=== PATIENT | female | born 1950 | race Caucasian/White ===

== ENCOUNTER → 2016-11-08 | Outpatient (CLI) | payer OTHER ==
[~2016-11-08] MED LIST: ASCA500 PO; ASPI325T39 PO; CALC500C3 PO; GARL1200 PO; MULT-506 PO; OMEG10007 PO; TYLUNK PO
--- NOTE | 2016-11-08 09:22 | DIAGNOSTIC IMAGING REPORT ---
LEFT PELVIS UNILATERAL HIP 1 VIEW CLINICAL HISTORY: 65 years-old Female presenting with LEFT HIP PAIN. TECHNIQUE: Single frontal view of the pelvis and frog-leg lateral view of the left hip were obtained. COMPARISON: None. FINDINGS: Extensive asymmetric degenerative change of the left hip. Complete joint space loss along the superior aspect is noted with extensive sclerosis and cystic change in both the acetabulum and humeral head. Slight deformity and irregularity of the cortex of the left femoral head. The hip joints remain congruent. No significant degenerative changes evident in the right hip. IMPRESSION: Severe degenerative change of the left hip as above. Electronically signed by: Petar Brooks M.D. 11/08/2016 9:20 AM Dictated Date/Time: 11/08/2016 9:19 AM
== END | disposition home or self-care (01) ==
LOC: C.RDSM 09:15
PROVIDERS: ATTEND Physician Assistant
DX: M25.552 Pain in left hip (principal); M16.12 Unilateral primary osteoarthritis, left hip

== ENCOUNTER 2016-12-15 08:14 | Inpatient (IN) | payer OTHER ==
[2016-11-22 10:28] VITALS: BMI 32.0
--- NOTE | 2016-11-22 11:08 | PAT Medication Instructions ---
Service Date Nov 22, 2016. Current Home Medication List Aspirin (Aspirin Ec), 4 TAB PO UD PRN for Pain Calcium Carbonate (Tums), 1 DOSE PO UD PRN for HEARTBURN Fish Oil (Wallis-3), 1 CAP PO HS Garlic (Garlic), Unknown Dose PO HS Multivitamin (Multivitamin), 1 TAB PO HS Medication Instructions For Your Scheduled Surgery - Hold for 5 days (per surgeon's instructions) Aspirin (Aspirin Ec), 4 TAB PO UD PRN for Pain - Hold the following medications 2 weeks prior to surgery: Garlic (Garlic), Unknown Dose PO HS Fish Oil (Wallis-3), 1 CAP PO HS -Hold the following the morning of the surgery: Calcium Carbonate (Tums), 1 DOSE PO UD PRN for HEARTBURN - Take the following medications as scheduled the night before surgery: Multivitamin (Multivitamin), 1 TAB PO HS Calcium Carbonate (Tums), 1 DOSE PO UD PRN for HEARTBURN (IF NEEDED) OTHERWISE NOTHING TO EAT OR DRINK AFTER MIDNIGHT If you have any questions please call us at [phone] or [phone] or [phone]
[2016-11-22 11:11] LABS: BASO % 0.4 %; BASO ABS # 0.02 K/uL (0-0.2); COMPLETE YES; EOS % 2.1 %; HEMATOCRIT 40.8 % (37-47); IG% 0.2 %; LYMPH % 33.4 %; LYMPH ABS # 1.56 K/uL (1.2-3.4); MEAN CELL VOLUME 84.5 fL (80-100); MEAN CORPUSCULAR HEMOGLOBIN 28.6 pg (25-34); MEAN CORPUSCULAR HGB CONC 33.8 g/dl (32-36); MEAN PLATELET VOLUME 9.6 fL (7.4-10.4); MONO % 7.1 %; NEUT % 56.8 %; PLATELET COUNT 234 K/uL (130-400); RED BLOOD COUNT 4.83 M/uL (4.2-5.4); WHITE BLOOD COUNT 4.67 K/uL (4.8-10.8)
[2016-11-22 11:15] LABS: URINE APPEARANCE CLEAR (CLEAR); URINE BILIRUBIN NEG (NEG); URINE COLOR YELLOW; URINE NITRITE NEG (NEG); URINE SPECIFIC GRAVITY 1.017 (1.000-1.030); UROBILINOGEN NEG (NEG); ZZUR CULT IF INDIC CLEAN CATCH NO
[2016-11-22 11:18] LABS: MANUAL MICROSCOPIC REQUIRED? NO; REVIEW REQ? NO
[2016-11-22 11:25] LABS: INR 0.9 (0.9-1.1); PROTHROMBIN TIME (PATIENT) 10.1 SECONDS (9.0-12.0)
[2016-11-22 11:50] LABS: BUN/CREATININE RATIO 33.1 (10-20); CALCIUM 9.2 mg/dl (8.5-10.1); CREATININE 0.71 mg/dl (0.60-1.20); POTASSIUM 4.2 mmol/L (3.5-5.1)
--- NOTE | 2016-11-22 12:04 | DIAGNOSTIC IMAGING REPORT ---
CHEST 2 VIEWS ROUTINE CLINICAL HISTORY: 65 years-old Female presenting with preoperative assessment. TECHNIQUE: PA and lateral views of the chest were obtained. COMPARISON: 05/06/2010. FINDINGS: Cardiomediastinal silhouette normal. Lungs and pleural spaces clear. Degenerative changes of the left glenohumeral joint. Upper abdomen normal. IMPRESSION: 1. No acute cardiopulmonary disease. Electronically signed by: Petar Brooks M.D. 11/22/2016 12:03 PM Dictated Date/Time: 11/22/2016 12:02 PM
--- NOTE | 2016-11-23 16:48 | HISTORY & PHYSICAL EXAMINATION ---
DATE OF ADMISSION: 12/15/2016 CHIEF COMPLAINT: Left hip pain. HISTORY OF PRESENT ILLNESS: This 65-year-old white female presents to the office with complaints of left hip pain that has been ongoing for over a year. No specific injury. Pain is over the lateral portion of her hip and extends to the groin. In the past, she did not have groin pain. She notes loss of motion secondary to pain. She has night pain. Worse with ambulation and weightbearing. Pain is affecting her ADLs. It is worse with standing in place. She has tried activity modification as well as oral anti-inflammatory use and use of a cane without lasting relief. Preoperative imaging has been obtained. She elects to proceed with left total hip arthroplasty in hopes of alleviating her discomfort. PAST MEDICAL HISTORY: Significant for numbness and tingling in her hands, right greater than left. History of kidney stones and obesity. PAST SURGICAL HISTORY: Right knee total knee arthroplasty and left ankle ORIF. ALLERGIES: NKDA. CURRENT MEDICATIONS: Multivitamin daily, garlic tablet daily, fish oil tablets daily, and aspirin 325 mg q. 6 hours. 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 No tobacco use. No ETOH use. Single. FAMILY HISTORY: Noncontributory. REVIEW OF SYSTEMS: Significant for above stated conditions, otherwise unremarkable. PHYSICAL EXAMINATION: GENERAL: Well-developed and well-nourished middle aged white female in no acute distress. Sitting on a bed. Alert and oriented. SKIN: Warm and dry with good turgor. No rashes or lesions. No ecchymosis or erythema. HEENT: Normocephalic and atraumatic. Eyes, PERRLA and EOMI. Nares patent bilaterally without turbinate enlargement. Oropharynx is without erythema or exudate. No lesions noted. Uvula midline. Oral mucosa moist. Good dentition. Fillings are noted. HEART: RRR. No MGR. LUNGS: Clear to auscultation bilaterally. No crackles, rhonchi or wheezing. Good air movement. ABDOMEN: Moderately obese. Bowel sounds present x4. Soft and nontender. No organomegaly. No masses. MUSCULOSKELETAL: Left hip reveals no obvious asymmetry or deformity. She has focal discomfort with palpation over the greater trochanter. No current pain with palpation over the anterior flexion crease. Hip flexion to around 100 degrees. Extremely limited internal and external rotation. She is essentially locked at midline. Significant pain with any attempted motion beyond neutral. Ambulatory with a significantly antalgic gait using her cane. NEUROLOGIC: Gross sensation is intact across the lower extremities by soft touch. Peripheral pulses are 2+. Cranial nerves II-XII are intact. DATA: Radiographic imaging previously obtained shows end-stage DJD of the left hip. She is bone on bone. She has large subchondral cysts. Large periarticular osteophytes are also present. IMPRESSION: Left hip severe end-stage degenerative joint disease. PLAN: Informed written consent will be obtained by Dr. Haynes. Operative procedure, postoperative recovery, physical therapy requirements, and medication use were all reviewed. Postoperative prescriptions for Percocet and Coumadin will be provided at discharge from the hospital. Anticipate discharge to home with home health services. She already has a walker and cane. Preoperative lab work, EKG, and chest x-ray have been ordered. Medical clearance has been requested from Dr. Casanova. 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
[2016-12-15] VITALS (7 sets, daily range): BP systolic 132–149; BP diastolic 73–83; PULSE 72–96; TEMP 36.5–36.9; O2SAT 94–97; Ht 165.1 cm; Wt 89.0 kg
[~2016-12-15] VITALS: Ht 165.1 cm; Wt 89.0 kg
[~2016-12-15 08:14] MED LIST changes: -ASCA500 PO; +CEFAZOLIN 2000 MG/60 ML D5W 60 ML IV SCH; +LACTATED RINGER'S 1000ML 1,000 ML IV SCH; +LACTATED RINGER'S 1000ML 500 ML IV ONE; +LACTATED RINGER'S 1000ML IV SCH; +ROPIVACAINE 5MG/ML 30 ML 150 MG, BUPIVACAINE/EPINEPHR 0.5% MPF 30 ML, KETOROLAC TROMETH... INFIL SCH; +TRANEXAMIC ACID INJ 1,000 MG in SODIUM CHLORIDE 0.9% 100ML 100 ML IV SCH; -TYLUNK PO
[2016-12-15] MEDS ORDERED: EpHEDrine SULFATE INJ 50 MG/ML AMP IV PRN (08:15)
[2016-12-15] MEDS ORDERED: FENTANYL CITRATE INJ 50 MCG/1 ML 2 ML VIAL IV PRN (08:15)
[2016-12-15] MEDS ORDERED: ATROPINE SULFATE 0.1 MG/ML 5ML SYR IV PRN (08:15)
[2016-12-15] MEDS ORDERED: ONDANSETRON INJ 2 MG/ML 2 ML VIAL IV PRN ×2 (08:15→12:45)
--- NOTE | 2016-12-15 08:26 | History & Physical Bridge Note ---
H&P Re-Evaluation Bridge Note: I have examined the patient, reviewed the History & Physical and in the interval since the performance of the History & Physical I have noted the following changes of clinical significance: consent verified.No changes noted
[2016-12-15] MEDS ORDERED: BUPIVACAINE 0.5 % 5 MG/1 ML PF 10ML VIAL ONE (08:33)
[2016-12-15] MEDS ORDERED: ACET-1256 PO (09:10)
[2016-12-15] MEDS ORDERED: MIDAZOLAM HCL 1 MG/ML 2ML VIAL ONE (10:02)
[2016-12-15] MEDS ORDERED: POVIDONE-IODINE OP SOLN 30 ML BTL ONE (10:37)
[2016-12-15] MEDS ORDERED: ORTHO JOINT ANESTHETIC ONE (10:37)
[2016-12-15] MEDS ORDERED: PROPOFOL IV EMULSION 10 MG/ML 20 ML VIAL IV ONE (11:21)
[2016-12-15] MEDS ORDERED: ONDANSETRON INJ 2 MG/ML 2 ML VIAL ONE (11:21)
[2016-12-15] MEDS ORDERED: LIDOCAINE HCL 2% 2 ML VIAL (20MG/ML) ONE (11:21)
[2016-12-15] MEDS ORDERED: METOCLOPRAMIDE HCL INJ 5 MG/ML 2 ML VIAL ONE (12:20)
--- NOTE | 2016-12-15 12:29 | [facility] Post Operative Brief Note ---
Immediate Operative Summary Operative Date Dec 15, 2016. Pre-Operative Diagnosis Left Hip End-Stage Degenerative Joint Disease Post-Operative Diagnosis Left Hip End-Stage Degenerative Joint Disease Procedure(s) Performed Left Total Hip Arthroplasty--Uncemented Surgeon Dr. Haynes Jira Administrator Surgeon(s) Dr. Brownlee (Fellow)/FIDELIA Peres Estimated Blood Loss 100 ml Findings severe djd Fluids (cc crystalloids) 1300cc Specimens A. Left Femoral Head Drains none Anesthesia spinal Complication(s) None Disposition Recovery Room / PACU
[2016-12-15] MEDS ORDERED: WARF2TAB PO (12:41)
[2016-12-15] MEDS ORDERED: OXYC-57 PO (12:41)
[2016-12-15] MEDS ORDERED: ACETAMINOPHEN 325 MG TAB PO PRN (12:45)
[2016-12-15] MEDS ORDERED: MAGNESIUM HYDROXIDE SUSP 30 ML UDC PO PRN (12:45)
[2016-12-15] MEDS ORDERED: ALUMINUM/MAGNESIUM/SIMETH (MAALOX MAX) 30 ML UDC PO PRN (12:45)
[2016-12-15] MEDS ORDERED: OXYCODONE HCL IR 5 MG TAB (IMMEDIATE RELEASE) PO PRN (12:45)
[2016-12-15] MEDS ORDERED: DiphenhydrAMINE HCL 50 MG/ML VIAL IV PRN (12:45)
[2016-12-15] MEDS ORDERED: METOCLOPRAMIDE HCL INJ 5 MG/ML 2 ML VIAL IV PRN (12:45)
[2016-12-15] MEDS ORDERED: MoRPHine SULFATE 2 MG/ML CARP IV PRN (12:45)
--- NOTE | 2016-12-15 12:47 | Discharge Instructions ---
Discharge Instructions Date of Service Dec 15, 2016. Admission Reason for Admission: Left Hip Degenerative Joint Disease Discharge Discharge Diagnosis / Problem: left hip s/p total hip replacement Discharge Goals Goal(s): Decrease discomfort, Improve function, Increase independence Activity Recommendations Activity Limitations: as noted below Lifting Limitations: gradually increase as tolerated Exercise/Sports Limitations: until after follow-up appointment Shower/Bathe: keep incision dry Driving or Machine Use: No driving until cleared by Dr. Haynes Weightbearing Status: Left weightbearing (as tolerated) . Instructions / Follow-Up Instructions / Follow-Up New Medicine: * You will likely be taking one or more of these medicines: 1. Percocet - Take, as directed, when you need it, every four to six hours to control your pain. 2. Coumadin - Thins your blood to lessen the chance of forming a blood clot. The dose of this is different for each person and is based on your blood tests that are done twice a week. * The most common side effects of pain medicine and iron are nausea and constipation. If nausea or constipation is too much of a problem or if you have any questions about your new medicines or doses, call [facility] at . We will try to help you manage these issues. VERY IMPORTANT TO READ AND REVIEW" Blood Clots and Blood Thinning Medicine: * You are given Coumadin during the immediate post-operative period to lessen the risk of blood clots forming in your legs and/or lungs. Coumadin is usually given for six weeks after surgery. * The prescription is for 2 mg tablets. At discharge, you should understand your dose and take it all at the same time every day, preferably after dinner. * You need to get your blood checked 1 - 2 times per week for six weeks, or as directed. * If your dose needs to change, we will call you. Do not take your medication on the day of the blood test until we call you. * If you don't hear from us after your blood draws, keep taking the same dose. Pain: * The immediate post-operative period after hip replacement surgery is often quite painful. * You are given a prescription for pain medicine. You should take it, as directed, when you need it, especially before physical therapy and before going to bed. Pain that interferes with sleep is very common and can last several months. * You will likely need pain medicine for the first two to four weeks. It will not stop all of the pain. The pain will lessen and as you feel better, you may change to milder pain medicine such as Tylenol. * The most common side effects of pain medicine are nausea and constipation, so don't take more than you need. Physical Therapy: * Follow the "Hip Precautions Instructions." * In some cases, the professor of social work at the hospital will arrange to have a therapist come to your house for the first couple of weeks to help you learn these skills. * You need to practice on your own or with the help of a family member as needed. * When you learn these skills, most of the therapy can be done on your own. Home Exercise: * You were shown a series of exercises in the hospital. Do these exercises three to four times each day including the exercises you were shown in physical therapy. Walking: * Get up and walk several times each day. For the first four weeks, try not to stand or walk for more than one hour at a time. If you do stand or walk for more than one hour, you will not hurt anything, but your leg will likely swell. * As you feel comfortable, you may change from the walker or crutches to a cane and then to independent walking. SELF CARE INSTRUCTIONS AFTER TOTAL HIP REPLACEMENT Until the incision and soft tissues around your hip have healed, there is a possibility that the hip prosthesis could dislocate. A. Observe the following precautions to prevent dislocation: 1. Don't bend your hip greater than 90 degrees. 2. Avoid crossing your legs or ankles while standing or lying. 3. Sit with your feet placed 6 inches apart. 4. When sitting, keep your knees below your hips. Sit on a firm surface, avoid deep, soft chairs and couches. Use an elevated toilet seat in the bathroom. 5. Don't bend over at the waist. Use a long handled shoehorn and a sock aid to help you put on your shoes and socks. A cord tire builder can help you mushroom picker objects that are too high or too low to reach. 6. Keep car riding to a minimum for at least one month after surgery. B. Your balance may be shaky for a while. Use crutches or a walker until directed by your doctor. C. Use hand rails when walking on stairs. D. Wear low heeled shoes with non-slip soles. E. Be sure that your floors are free of things that could trip you - throw rugs , electrical cords, small objects. Avoid wet and waxed floors, especially with crutches and canes. F. Try to walk several times a day with rest periods between. G. Continue with all the exercises taught to you in the hospital. Again, make walking a part of your daily routine. VERY IMPORTANT TO READ AND REVIEW A. Take Coumadin, or Lovenox (blood thinning medications) as directed by your doctor. If you are on Coumadin, have a pro-time (blood test) drawn according to your doctor's instructions. This will tell the doctor how well the Coumadin is thinning your blood. B. There are a few signs you need to watch for after you are home. If you notice any of the followin. Increased severe hip pain. Some pain is expected especially when you exercise. 2. Increased swelling in your leg or knee; pain or swelling of the calf muscle in either lower leg. 3. Any fluid drainage from the incision. 4. Shortness of breath or chest pain. TEDs/Elastic Stockings: * The white elastic stockings help limit swelling and prevent blood clots from forming in your legs. The more you wear them, the more they work. * Wear them for six weeks. Prevention of Infection: * Take antibiotics one hour before any dental cleaning, dental work, urological procedure, gastrointestinal procedure or any invasive surgery in order to prevent your new joint from getting infected. * You may get the antibiotics from the doctor performing the procedure or we will call in a prescription to the pharmacy of your choice. Call the office for a prescription at least 2 days prior to your appointment. Things to Watch For: * Drainage from the incision site that occurs more than one week after your surgery. * Severely increased leg pain or swelling. * Increased redness at the incision site. * Fever above 101 degrees Fahrenheit. * Unusual chest pain or shortness of breath. * Unusual pain or burning with urination. Current Hospital Diet Patient's current hospital diet: Discharge Diet Recommended Diet: Regular Diet Procedures Procedures Performed: Left Total Hip Arthroplasty--Uncemented Pending Studies Studies pending at discharge: no Medical Emergencies . Who to Call and When: Medical Emergencies: If at any time you feel your situation is an emergency, please call 911 immediately. . Non-Emergent Contact Non-Emergency issues call your: Primary Care Provider, Surgeon Call Non-Emergent contact if: temperature is above 101, wound has increased drainage, wound has increased redness, wound has increased pain, you have any medication questions . "Provider Documentation" section prepared by Humberto Roque PA-C. . VTE Core Measure Inpt VTE Proph given/why not?: Warfarin (Coumadin), T.EKrysten Stockings, SCD's [place] Drug Monitoring Program Search Results: no issues identified
--- NOTE | 2016-12-15 13:08 | Progress Note ---
Progress Note Date of Service Dec 15, 2016. Progress Note Postop check status post left total replacement. Patient seen in recovery room. She is resting, comfortably. She denies chest pain shortness breath fever chills nausea vomiting or headache. Vital signs are stable afebrile. Spinal block starting to wear off trace function. X-rays pending. Assessment doing well continue care pathway. Dictated not read.
--- NOTE | 2016-12-15 13:11 | OPERATIVE REPORT ---
DATE OF OPERATION: 12/15/2016 SURGEON: Jim Haynes MD SHERIFF OFFICER: Torrie. SECOND SHERIFF OFFICER: Humberto Roque PA-C PREOPERATIVE DIAGNOSIS: Severe osteoarthritis with deformity, left hip. POSTOPERATIVE DIAGNOSIS: Same. OPERATION PERFORMED: Noncemented left total hip replacement. PERIOPERATIVE SITUATION: Medically cleared female with intractable hip pain with x-rays revealing end-stage disease with significant superior migration, subchondral cystic formation, significant thickening and periarticular osteophytes of the joint. At this point in time, she has failed conservative management and is requesting total joint replacement. SUMMARY OF IMPLANTS: Size 50 acetabular shell sector cup, cancellous bone screw 6.5 x 25, acetabular liner 32 x 50 neutral 1 high Tri-Lock femoral stem, Articul/Lopez femoral head size 32+9. ESTIMATED BLOOD LOSS: 100 mL CRYSTALLOID: 1300 mL PROCEDURE: The patient appropriately identified, site verified, consent verified, 2 grams of Ancef confirmed as being given and a gram of TXA confirmed as being given. The left lower extremity was prepped and draped in usual routine fashion with the patient in the right lateral decubitus position. A posterior approach to the hip was made. Sharp dissection carried down to the fascia. This was then opened with the thermal device retractor placed with care protecting the sciatic nerve. The short external rotators were then identified and then they were released and the capsule was then opened and teed, the hip dislocated, the femoral neck resected. There was marked deformity. Acetabular exposure was then obtained with an anterior, inferior and superior lateral retractor. The labrum remnants were removed, the osteophytes removed, multiple loose bodies removed. Serial reaming carried up to a 50 and a 50 cup impacted into appropriate anteversion and inclination. A 6.5 x 25 screw was then placed with excellent purchase. The wound was then irrigated with Betadine Pulsavac and then the trial liner seated. The femur was then flexed and internally rotated. The proximal femur prepared with the padded box sewer, canal finder, lateralizing rasp, and serial broaching up to a size 1. Trials with a +5 and a +9, produced excellent stability, but leg lengths were better with the +9. The hip was then dislocated. All remaining trial elements were removed. The wound irrigated with Betadine Pulsavac and then permanent liner seated, permanent head and neck seated. Wound irrigated with Betadine Pulsavac and then closed with #2 Vicryl for the fascial layer. Orthomix injected into the subcutaneous layers and then this layer closed with #2 Vicryl for the deep fat, 2-0 Vicryl for the superficial fat and stainless steel clips for skin. The patient was then transferred to recovery room in satisfactory condition having tolerated the procedure well. I attest to the content of the Intraoperative Record and any orders documented therein. Any exception s are noted below.
[2016-12-15] MEDS ORDERED: MoRPHine SULFATE 4 MG/ML 1 ML CARP\\VIAL IV PRN (13:15)
--- NOTE | 2016-12-15 13:24 | DIAGNOSTIC IMAGING REPORT ---
PELVIS 1 OR 2 VIEW ROUTINE CLINICAL HISTORY: Postop hip arthroplasty COMPARISON STUDY: No previous studies for comparison. FINDINGS: There are postsurgical changes of a total left hip arthroplasty. The acetabular and femoral components appear well seated. Overlying skin yudith are evident. There is no dislocation. There is air in soft tissues consistent with recent surgery. IMPRESSION: Postsurgical changes of a total left hip arthroplasty. Electronically signed by: Ronal Singh M.D. 12/15/2016 1:23 PM Dictated Date/Time: 12/15/2016 1:22 PM
--- NOTE | 2016-12-15 13:58 | Anesthesiology Progress Note ---
Anesthesia Post Op Note Date & Time Dec 15, 2016 at 13:58 Vital Signs Pain Intensity: 0 Vital Signs Past 12 Hours Date Time Temp Pulse Resp B/P (MAP) Pulse Ox O2 Delivery O2 Flow Rate FiO2 12/15/16 13:54 36.5 72 18 12/15/16 13:54 71 18 95 12/15/16 13:51 129/78 12/15/16 13:49 73 18 12/15/16 13:49 72 18 95 12/15/16 13:46 131/73 12/15/16 13:44 70 18 96 12/15/16 13:44 71 18 12/15/16 13:41 131/72 12/15/16 13:39 72 15 96 12/15/16 13:39 70 15 12/15/16 13:36 132/74 12/15/16 13:34 73 15 96 12/15/16 13:34 74 15 12/15/16 13:31 125/73 12/15/16 13:29 66 14 96 12/15/16 13:29 66 14 12/15/16 13:28 36.4 12/15/16 13:27 68 16 12/15/16 13:27 67 16 96 12/15/16 13:26 120/75 12/15/16 13:22 66 15 12/15/16 13:22 67 15 96 12/15/16 13:21 124/80 12/15/16 13:17 67 16 97 12/15/16 13:17 67 16 12/15/16 13:16 122/77 12/15/16 13:12 67 17 96 12/15/16 13:12 68 17 12/15/16 13:10 131/75 12/15/16 13:07 67 12 12/15/16 13:07 71 12 96 12/15/16 13:06 104/53 12/15/16 13:02 68 16 95 12/15/16 13:02 69 16 12/15/16 13:01 123/77 12/15/16 12:57 68 14 12/15/16 12:57 68 14 96 12/15/16 12:56 131/75 12/15/16 12:52 69 13 12/15/16 12:52 70 13 95 12/15/16 12:51 128/73 12/15/16 12:47 75 13 12/15/16 12:47 79 13 95 12/15/16 12:46 122/73 12/15/16 12:42 73 16 96 12/15/16 12:42 75 16 12/15/16 12:41 135/80 12/15/16 12:37 36.2 77 16 125/74 96 Nasal Cannula 4 12/15/16 12:37 15 12/15/16 12:37 15 125/74 12/15/16 08:34 36.6 86 20 143/81 94 Room Air Notes Mental Status: alert / awake / arousable, participated in evaluation Pt Amnestic to Procedure: Yes Nausea / Vomiting: adequately controlled Pain: adequately controlled Airway Patency, RR, SpO2: stable & adequate BP & HR: stable & adequate Hydration State: stable & adequate Neuraxial Anesthesia: was administered, sensory block is resolving Anesthetic Complications: no major complications apparent
[2016-12-15] MEDS: D5W AND 1/2NSS + 20MEQ KCL 1,000 ML IV SCH (14:30)
[2016-12-15] MEDS: ACETAMINOPHEN IV 1,000 MG in EMPTY BAG 0 ML IV SCH ×2 (15:00→22:41)
[2016-12-15] MEDS ORDERED: WARFARIN SOD 5 MG TAB PO ONE (16:00)
[2016-12-15] MEDS: KETOROLAC TROMETHAMINE 15 MG/ML VIAL IV. SCH ×2 (16:38→21:55)
[2016-12-15] MEDS: CEFAZOLIN IV 2,000 MG in SYRINGE 0 ML IV SCH ×2 (16:43→23:48)
--- NOTE | 2016-12-15 17:42 | Progress Note ---
Progress Note Date of Service Dec 15, 2016. Progress Note She is sitting up in bed doing well denies any condyle complaints. She notes that she can move her legs. Femoral and sciatic nerve function is completely normal. Eating well. We'll Hep-Lock IV. Mobilize.
[2016-12-15] MEDS: FERROUS GLUCONATE 324 MG TAB PO SCH (18:28)
[2016-12-15] MEDS ORDERED: TRANEXAMIC ACID INJ 1,000 MG in SODIUM CHLORIDE 0.9% 100ML 100 ML IV SCH (18:30)
[2016-12-15] MEDS: DOCUSATE SODIUM 100 MG CAP PO SCH (21:11)
[2016-12-16 00:01] VITALS: BP 131/76; PULSE 76; TEMP 36.7; O2SAT 96
[2016-12-16] MEDS: D5W AND 1/2NSS + 20MEQ KCL 1,000 ML IV SCH (00:30)
[2016-12-16] MEDS ORDERED: NURSING VERBAL MED ORDER ONE (02:15)
[2016-12-16 03:27] VITALS: BP 139/76; PULSE 84; TEMP 36.7; O2SAT 96
[2016-12-16] MEDS: KETOROLAC TROMETHAMINE 15 MG/ML VIAL IV. SCH ×2 (04:32→10:15)
[2016-12-16 05:43] LABS: BASO % 0.3 %; BASO ABS # 0.02 K/uL (0-0.2); COMPLETE YES; EOS % 0.3 %; HEMATOCRIT 36.8 % (37-47); IG% 0.1 %; LYMPH ABS # 1.29 K/uL (1.2-3.4); MEAN CELL VOLUME 84.6 fL (80-100); MEAN CORPUSCULAR HEMOGLOBIN 29.2 pg (25-34); MEAN CORPUSCULAR HGB CONC 34.5 g/dl (32-36); MEAN PLATELET VOLUME 9.3 fL (7.4-10.4); MONO % 5.8 %; NEUT % 76.5 %; PLATELET COUNT 196 K/uL (130-400); RED BLOOD COUNT 4.35 M/uL (4.2-5.4); WHITE BLOOD COUNT 7.57 K/uL (4.8-10.8)
[2016-12-16 05:51] LABS: PROTHROMBIN TIME (PATIENT) 10.7 SECONDS (9.0-12.0)
[2016-12-16] MEDS: ACETAMINOPHEN IV 1,000 MG in EMPTY BAG 0 ML IV SCH (06:03)
[2016-12-16 06:14] LABS: BUN/CREATININE RATIO 19.1 (10-20); CALCIUM 8.2 mg/dl (8.5-10.1); CREATININE 0.67 mg/dl (0.60-1.20); POTASSIUM 3.8 mmol/L (3.5-5.1)
[2016-12-16] MEDS ORDERED: DEXAMETHASONE INJ 10 MG in SYRINGE 0 ML IV SCH (07:30)
[2016-12-16 07:41] VITALS: BP 125/67; PULSE 80; TEMP 36.3; O2SAT 96
--- NOTE | 2016-12-16 07:53 | Orthopedic Progress Note ---
Orthopedic Progress Note Date of Service Dec 16, 2016. Subjective Post OP Day: 1 Reports: feeling well, Denies: complaints, chest pain, SOB, nausea / vomiting, light headedness, calf pain Objective calves soft nontender, N/V intact, hip located, dressing C/D/I, A&O x3, toes mobile Date Time Temp Pulse Resp B/P (MAP) Pulse Ox O2 Delivery O2 Flow Rate FiO2 12/16/16 07:41 36.3 80 16 125/67 (86) 96 Room Air 12/16/16 03:27 36.7 84 16 139/76 (97) 96 Room Air 12/16/16 00:01 36.7 76 16 131/76 (94) 96 Room Air 12/15/16 23:15 Room Air 12/15/16 19:33 36.9 96 20 138/73 (94) 97 Room Air 12/15/16 16:30 36.5 84 18 132/75 (94) 97 Nasal Cannula 2.0 12/15/16 16:00 97 Nasal Cannula 2.0 12/15/16 15:30 36.5 79 18 147/80 (102) 97 Nasal Cannula 2.0 12/15/16 14:30 36.6 72 18 149/81 (103) 96 Nasal Cannula 2.0 12/15/16 14:00 36.6 76 16 144/83 (103) 97 Nasal Cannula 2.0 12/15/16 14:00 97 Nasal Cannula 2.0 12/15/16 14:00 Nasal Cannula 2.0 12/15/16 13:54 36.5 72 18 12/15/16 13:54 71 18 95 12/15/16 13:51 129/78 12/15/16 13:49 73 18 12/15/16 13:49 72 18 95 12/15/16 13:46 131/73 12/15/16 13:44 70 18 96 12/15/16 13:44 71 18 12/15/16 13:41 131/72 12/15/16 13:39 72 15 96 12/15/16 13:39 70 15 12/15/16 13:36 132/74 12/15/16 13:34 73 15 96 12/15/16 13:34 74 15 12/15/16 13:31 125/73 12/15/16 13:29 66 14 96 12/15/16 13:29 66 14 12/15/16 13:28 36.4 12/15/16 13:27 68 16 12/15/16 13:27 67 16 96 12/15/16 13:26 120/75 12/15/16 13:22 66 15 12/15/16 13:22 67 15 96 12/15/16 13:21 124/80 12/15/16 13:17 67 16 97 12/15/16 13:17 67 16 12/15/16 13:16 122/77 12/15/16 13:12 67 17 96 12/15/16 13:12 68 17 12/15/16 13:10 131/75 12/15/16 13:07 67 12 12/15/16 13:07 71 12 96 12/15/16 13:06 104/53 12/15/16 13:02 68 16 95 12/15/16 13:02 69 16 12/15/16 13:01 123/77 12/15/16 12:57 68 14 12/15/16 12:57 68 14 96 12/15/16 12:56 131/75 12/15/16 12:52 69 13 12/15/16 12:52 70 13 95 12/15/16 12:51 128/73 12/15/16 12:47 75 13 12/15/16 12:47 79 13 95 12/15/16 12:46 122/73 12/15/16 12:42 73 16 96 12/15/16 12:42 75 16 12/15/16 12:41 135/80 12/15/16 12:37 36.2 77 16 125/74 96 Nasal Cannula 4 12/15/16 12:37 15 12/15/16 12:37 15 125/74 12/15/16 08:34 36.6 86 20 143/81 94 Room Air Laboratory Results 24 Hours: Test 12/16/16 05:16 White Blood Count 7.57 K/uL Red Blood Count 4.35 M/uL Hemoglobin 12.7 g/dL Hematocrit 36.8 % Mean Corpuscular Volume 84.6 fL Mean Corpuscular Hemoglobin 29.2 pg Mean Corpuscular Hemoglobin Concent 34.5 g/dl Platelet Count 196 K/uL Mean Platelet Volume 9.3 fL Neutrophils (%) (Auto) 76.5 % Lymphocytes (%) (Auto) 17.0 % Monocytes (%) (Auto) 5.8 % Eosinophils (%) (Auto) 0.3 % Basophils (%) (Auto) 0.3 % Neutrophils # (Auto) 5.79 K/uL Lymphocytes # (Auto) 1.29 K/uL Monocytes # (Auto) 0.44 K/uL Eosinophils # (Auto) 0.02 K/uL Basophils # (Auto) 0.02 K/uL Prothromb Time International Ratio 1.0 Prothrombin Time 10.7 SECONDS Assessment & Plan Assessment: s/p left MELVIN post-op day # 1 doing well Plan: - WBAT/LLE - PT/OT - abx completed - DVT prophylaxis: coumadin, TEDS, SCDs - INR: 1.0, home on 5 mg coumadin, recheck INR Tuesday - Diet: regular - Dressing change this AM - Home likely later today Inhouse Planning DVT Prophylaxis: TEDs, SCDs, Coumadin Discharge Planning Discharge Planning: home with home health DVT Prophylaxis: TEDs, SCDs, Coumadin
[2016-12-16] MEDS: DOCUSATE SODIUM 100 MG CAP PO SCH (08:40)
[2016-12-16] MEDS: FERROUS GLUCONATE 324 MG TAB PO SCH ×2 (08:41→12:22)
[2016-12-16] MEDS ORDERED: PANTOprazole SOD 40 MG TAB PO SCH (09:00)
[2016-12-16] MEDS ORDERED: MULTIVITAMIN TAB PO SCH (09:00)
--- NOTE | 2016-12-16 09:01 | Discharge Summary ---
Orthopedic Discharge Summary Admission Date/Reason Dec 15, 2016 at 08:40 Left Hip Degenerative Joint Disease. Discharge Date/Disposition Dec 16, 2016 Home with services Diagnosis Principal Diagnosis: Left hip DJD Secondary Diagnoses/Problems: s/pl Left MELVIN Procedure(s) Performed Left total hip arthroplasty by Dr. Currie 12/15/16 Medication Reconciliation New Medications: Oxycodone/Acetaminophen 5MG/325MG (Percocet 5MG/325MG) Tab 1-2 TABLETS PO Q4H PRN for Pain, #30 TAB Warfarin Sodium (Coumadin) 2 Mg Tab 4 MG PO DAILY, #60 TAB Continued Medications: Acetaminophen (Tylenol) 500 Mg Tab 2 TAB PO Q6 for 2 Days, #20 TAB 3 Refills Calcium Carbonate (Tums) 500 Mg Chew 1 DOSE PO UD PRN for HEARTBURN Garlic (Garlic) Unknown Strength Cap Unknown Dose PO HS Multivitamin (Multivitamin) Tab 1 TAB PO HS, TAB Discontinued Medications: Aspirin (Aspirin Ec) 325 Mg Tab 4 TAB PO UD PRN for Pain PT INSTRUCTED TO STOP 5 DAYS PRIOR TO SURGERY BY DR CURRIE'S PA Fish Oil (Dalton-3) 1 Ea Cap 1 CAP PO HS, CAP Admission Physical Exam As per Admitting History & Physical. Hospital Course 66 y/o female with long standing left hip pain secondary to DJD, surgery recommended, consents obtained. The patient tolerated the procedure well and was able to be discharged home with home health on 12/16/16. Discharge Instructions Please refer to the electronic Patient Visit Report (Discharge Instructions) for additional information.
[2016-12-16 11:47] VITALS: BP 145/73; PULSE 90; TEMP 36.8; O2SAT 96
--- NOTE | 2016-12-16 12:41 | Anesthesiology Progress Note ---
Anesthesia Post Op Note Date & Time Dec 16, 2016 at 12:41 Vital Signs Pain Intensity: 2.0 Vital Signs Past 12 Hours Date Time Temp Pulse Resp B/P (MAP) Pulse Ox O2 Delivery O2 Flow Rate FiO2 12/16/16 11:47 36.8 90 16 145/73 (97) 96 Room Air 12/16/16 09:29 Room Air 12/16/16 09:12 36.3 80 16 96 Room Air 12/16/16 07:41 36.3 80 16 125/67 (86) 96 Room Air 12/16/16 07:40 Room Air 12/16/16 03:27 36.7 84 16 139/76 (97) 96 Room Air Notes Mental Status: alert / awake / arousable, participated in evaluation Pt Amnestic to Procedure: Yes Nausea / Vomiting: adequately controlled Pain: adequately controlled Airway Patency, RR, SpO2: stable & adequate BP & HR: stable & adequate Hydration State: stable & adequate Anesthetic Complications: no major complications apparent
[2016-12-16] MEDS ORDERED: WARFARIN SOD 5 MG TAB PO ONE (16:00)
== END 2016-12-16 12:55 | disposition home health service (06) | DRG 470 ==
LOC: C.ACU 08:14 → C.MSN 08:40 → ENRESERV 13:14
PROVIDERS: ADMIT Physical Medicine & Rehabilitation Sports Medicine; ATTEND Physical Medicine & Rehabilitation Sports Medicine
PROC: 0SRB0JA Replacement of Left Hip Joint with Synthetic Substitute, Uncemented, Open Approach (ICD-10-PCS; principal; 2016-12-15 10:30)
DX: M16.12 Unilateral primary osteoarthritis, left hip (principal); E66.9 Obesity, unspecified; Z87.442 Personal history of urinary calculi; Z68.32 Body mass index [BMI] 32.0-32.9, adult

== ENCOUNTER → 2017-02-14 | Outpatient (CLI) | payer OTHER ==
[~2017-02-14] MED LIST changes: +ACET-1256 PO; -ASPI325T39 PO; -CEFAZOLIN 2000 MG/60 ML D5W 60 ML IV SCH; -LACTATED RINGER'S 1000ML 1,000 ML IV SCH; -LACTATED RINGER'S 1000ML 500 ML IV ONE; -LACTATED RINGER'S 1000ML IV SCH; -OMEG10007 PO; +OXYC-57 PO; -ROPIVACAINE 5MG/ML 30 ML 150 MG, BUPIVACAINE/EPINEPHR 0.5% MPF 30 ML, KETOROLAC TROMETH... INFIL SCH; -TRANEXAMIC ACID INJ 1,000 MG in SODIUM CHLORIDE 0.9% 100ML 100 ML IV SCH; +WARF2TAB PO
== END | disposition home or self-care (01) ==
LOC: C.RDSM 11:00
PROVIDERS: ATTEND Physical Medicine & Rehabilitation Sports Medicine
DX: M16.12 Unilateral primary osteoarthritis, left hip (principal)

== ENCOUNTER → 2017-05-17 | Day surgery (SDC) | payer OTHER ==
[2017-04-25 11:50] VITALS: Ht 160 cm; Wt 90.9 kg
[~2017-05-17] VITALS: Ht 160 cm; Wt 90.9 kg
[~2017-05-17] MED LIST changes: +ASPI325T39 PO; +ATROPINE SULFATE 0.1 MG/ML 5ML SYR IV PRN; +BUPIVACAINE 0.5 % 5 MG/1 ML PF 10ML VIAL ONE; +CEFAZOLIN 2000MG IV PUSH 15 ML IV SCH; +EpHEDrine SULFATE INJ 50 MG/ML AMP IV PRN; +FENTANYL CITRATE INJ 50 MCG/1 ML 2 ML VIAL IV PRN; +FENTANYL CITRATE INJ 50 MCG/1 ML 2 ML VIAL ONE; +LACTATED RINGER'S 1000ML 1,000 ML IV SCH; +LIDOCAINE HCL 2% 2 ML VIAL (20MG/ML) ONE; +LIDOCAINE HCL 2% LOCAL 20 ML VIAL ONE; +MIDAZOLAM HCL 1 MG/ML 2ML VIAL ONE; +OMEG10007 PO; +ONDANSETRON INJ 2 MG/ML 2 ML VIAL IV PRN; -OXYC-57 PO; +PROPOFOL IV EMULSION 10 MG/ML 20 ML VIAL IV ONE; +SODIUM CHLORIDE 0.9% 1000ML 1,000 ML IV SCH; -WARF2TAB PO
--- NOTE | 2017-05-17 06:53 | History & Physical Bridge Note ---
H&P Re-Evaluation Bridge Note: I have examined the patient, reviewed the History & Physical and in the interval since the performance of the History & Physical I have noted the following changes of clinical significance:consent obtained. No changes noted
--- NOTE | 2017-05-17 06:55 | Discharge Instructions ---
Discharge Instructions Date of Service May 17, 2017. Visit Reason for Visit: Right Wrist Carpal Tunnel Syndrome Discharge Discharge Diagnosis / Problem: same Discharge Goals Goal(s): Decrease discomfort, Improve function Medications Stopped Medications Name(s): held aspirin for ten days Restart Stopped Medication(s): resume all meds Activity Recommendations Activity Limitations: as noted below Lifting Limitations: until after follow-up appointment Exercise/Sports Limitations: until after follow-up appointment May Resume Sexual Activity: after follow-up appointment Shower/Bathe: keep incision dry Driving or Machine Use: resume 3 days after discharge Anesthesia . Post Anesthesia Instructions: If you have had General Anesthesia or IV Sedation: * Do not drive today. * Resume driving when surgeon permits. * Do not make important decisions or sign legal documents today. * Call surgeon for: 1. Temperature elevations greater than 101 degrees F. 2. Uncontrollable pain. 3. Excessive bleeding. 4. Persistent nausea and vomiting. 5. Medication intolerance (nausea, vomiting or rash). * For nausea and vomiting use only clear liquids such as: tea, soda, bouillon until nausea subsides, then gradually increase diet as tolerated. * If you have any concerns or questions, call your surgeon's office. If physician is unavailable and it is an emergency, call 911 or go to the nearest emergency room. . Instructions / Follow-Up Instructions / Follow-Up The following are instructions to follow after minor hand surgery. ACTIVITY RECOMMENDATIONS: * Minimize activity until your first visit after surgery. * No excessive walking, jogging, sports or laboring. * Return to activity is individualized. Most patients are able to return to everyday activities within 2 weeks. * Return to sports or intensive labor usually occurs at 1-2 months. * DRIVING: Driving may be resumed when you feel you have adequate pain control and use of the hand. * BATHING: You may shower or sponge-bathe immediately after surgery. The dressing will need to be covered with a plastic bag or plastic wrap until the dressing is changed on the fourth or fifth day after surgery. Once the dressing has been changed on the fourth or fifth day after surgery, you may shower and get the incision wet. * Wash with regular soap and water. * Do not bathe (submerge the incision), soak, swim or use a hot tub until the incision is completely healed over with normal skin and the doctor has given the OK to proceed. * There is no need to apply any ointments, powders or salves to your incision. * Do not apply alcohol or hydrogen peroxide directly to the incision. Diluted peroxide (50:50 mixture with sterile saline) may be used to clean dried blood from around the incision area. WORK/SCHOOL: * You may return to sedentary work or school when you are feeling comfortable. This is usually 3-7 days after surgery. * Expect increased discomfort with increased activity. Continue to elevate and ice the hand as much as possible. DIET: * Resume previous diet. MEDICATIONS: * You will have a prescription for pain medication and an anti-inflammatory medication after surgery. Use the pain pills for severe pain and the anti-inflammatory for less severe pain. * Once the pain pills have run out, try to use the anti-inflammatory. If this is not effective then contact the office for assistance. * The pain medication may cause nausea, constipation and sleepiness. You should see how they affect you before driving or similar activity. * The anti-inflammatory may cause stomach upset and bleeding. If this occurs, let your doctor know immediately . * Some patients may need blood clot prevention. This can be done with either a pill or a simple shot. Your doctor will advise you on when to begin these medications and how to take them. * Do not take aspirin or other anti-inflammatory products (i.e. Advil or Aleve ) if taking blood thinner medication. * Take a stool softener like Colace or a stimulant like Senokot to prevent constipation. SPECIAL CARE INSTRUCTIONS: ICE: * Do not apply ice directly to the skin. * Use a thin dressing or stockinet between the skin and ice bag. The dressing in place after surgery will suffice. * Apply ice for 20-30 minutes and repeat every 2-4 hours. This is especially important for the first 3-7 days after surgery. * Once the pain improves, use ice as needed. ELEVATION: * Keep your hand elevated at or above the level of your heart as much as possible. * Expect some increased discomfort and swelling if you allow your hand to hang down for any length of time. DRESSING: * Your dressing will be changed 4-5 days after surgery by the physical therapist or physician's mailroom assistant. Leave your dressing intact until this time. * You may then change your dressing daily with clean dry gauze or Band-aids and a soft wrap or stockinet. * Always wash your hands prior to touching the incision area. * Once the stitches are removed, you may leave the wound open to air or cover with a thin bandage. * There is no need to apply any ointments, powders or salves to your incision. * Expect some bloody drainage for the first few days after surgery. * Leave the tape strips in place (if present) for 5-7 days. * The initial dressing after surgery may become soaked with blood or fluid which is normal. You may reinforce your dressing with clean, dry gauze as needed. BRACE: * Bracing is generally not needed after routine hand surgery. THERAPY: * Physical therapy may be prescribed after your surgery. * For carpal tunnel and trigger digit surgery you may begin moving your fingers and wrist immediately after surgery as tolerated. * Be careful to not overuse. * Once the sutures are removed, further range of motion exercises can be performed. * Hand incisions may be very sensitive for a few months after surgery so avoid excessive pressure on the incision. If necessary, use a padded weightlifters' glove. * You may massage the incision with skin cream to make it less sensitive and reduce scarring. * Hand strength usually returns with normal use. * If needed, squeezing a soft sponge or Play-dough may help. * Your doctor will recommend physical therapy if necessary. PROBLEMS/QUESTIONS: * If you have any problems such as severe pain, numbness, tingling or high fevers or if you have any questions, please contact the office at [phone]. * It is not uncommon to have some numbness and tingling after the surgery especially if you have had a nerve block done. This should gradually improve over the first 1- 2 days. If this persists longer or worsens then contact the office. FOLLOW UP VISIT: * If not already scheduled, please call the office at to schedule follow-up appointments for approximately 10 days, 6 weeks and 3 months after surgery. Diet Recommendations Recommended Home Diet: resume previous diet Procedures Procedures Performed: R CTR Pending Studies Studies pending at discharge: no Medical Emergencies . Who to Call and When: Medical Emergencies: If at any time you feel your situation is an emergency, please call 911 immediately. . Non-Emergent Contact Non-Emergency issues call your: Specialist Call Non-Emergent contact if: temperature is above 101.5, wound has increased drainage, wound has increased redness . . "Provider Documentation" section prepared by Jim Haynes. .
--- NOTE | 2017-05-17 07:32 | [facility] Post Operative Brief Note ---
Immediate Operative Summary Operative Date May 17, 2017. Pre-Operative Diagnosis Right Wrist Carpal Tunnel Syndrome Post-Operative Diagnosis Same Procedure(s) Performed Right Wrist Open Carpal Tunnel Release Surgeon Dr. Haynes Construction Estimator Surgeon(s) Wendy Roque PA-C Estimated Blood Loss Trace Findings Consistent with Post-Op Diagnosis Fluids (cc crystalloids) 300cc Specimens None Drains None Anesthesia Type MAC Complication(s) none Disposition Accompanied Pt To Recovery: no Disposition:
--- NOTE | 2017-05-17 07:38 | [facility] Operative Report ---
Operative Report Operative Date May 17, 2017. Pre-Operative Diagnosis Right Wrist Carpal Tunnel Syndrome Post-Operative Diagnosis Same Procedure(s) Performed Right Wrist Open Carpal Tunnel Release Surgeon Dr. Haynes Tax Compliance Representative Surgeon(s) Wendy Roque PA-C Estimated Blood Loss Trace Findings Right wrist median nerve entrapment Fluids 300cc Specimens None Drains None Anesthesia Type MAC Complication(s) none Disposition no Indications This 66-year-old white female presented to the office with complaints of right hand numbness and tingling. She had tried conservative care measures without improvement. She elected to proceed with surgical intervention after being educated about potential risks and outcomes. Preoperative EMG was obtained. Description of Procedure Patient was taken to the operating room where she was given local anesthesia and sedation. She was prepped and draped in usual sterile fashion. Please see Dr. Haynes's operative report for specifics of the procedure. I was present for the entire case from initial patient positioning through final splinting. Assistance was provided in tissue retraction, hemostasis, final wound closure, and splinting. Patient was taken to phase 2 recovery in satisfactory condition. I attest to the content of the Intraoperative Record and any orders documented therein. Any exceptions are noted below.
--- NOTE | 2017-05-17 08:01 | Anesthesia Progress Nt - [facility] ---
Anesthesia Post Op Note Date & Time May 17, 2017 at 08:01 Vital Signs Pain Intensity: 0 Vital Signs Past 12 Hours Date Time Temp Pulse Resp B/P (MAP) Pulse Ox O2 Delivery O2 Flow Rate FiO2 05/17/17 07:34 36.2 84 16 146/85 (105) 95 Room Air Notes Mental Status: alert / awake / arousable, participated in evaluation Pt Amnestic to Procedure: Yes Nausea / Vomiting: adequately controlled Pain: adequately controlled Airway Patency, RR, SpO2: stable & adequate BP & HR: stable & adequate Hydration State: stable & adequate Anesthetic Complications: no major complications apparent
[2017-05-17 08:11] VITALS: BP 150/79; PULSE 73; TEMP 36.4; O2SAT 97
--- NOTE | 2017-05-17 08:19 | OPERATIVE REPORT ---
DATE OF OPERATION: 05/17/2017 SURGEON: Jim Haynes MD. LIBRARIAN HELPER: Humberto Roque PA-C, no resident or fellow available. PREOPERATIVE DIAGNOSIS: Carpal tunnel syndrome right upper extremity. POSTOPERATIVE DIAGNOSIS: Same. OPERATION PERFORMED: Right carpal tunnel release. ANESTHESIA: Local with sedation. PERIOPERATIVE SITUATION: Medically cleared female with intractable carpal tunnel complaints. At this point in time wants to proceed with surgical procedure at her request. She was identified of the risks and benefits noted on the consent. DESCRIPTION OF THE PROCEDURE: The patient appropriately identified, site verified, consent verified. Antibiotics confirmed as being given. The right upper extremity was blocked with 4 mL of 0.5% plain Marcaine and 4 mL of 2% plain lidocaine. The arm was then prepped and draped in the usual routine fashion. Tourniquet inflated to 250 mmHg after exsanguination of limb with a rubber Esmarch bandage for a total of about 18 minutes. A curvilinear incision made based on the fourth ray. Full thickness skin flaps raised. The palmar fascia identified. This was then incised under direct vision. The antebrachial fascia was then identified proximally and then the superficial palmar arch identified distally. The fascia was then incised, so it was completely released from the hook of the hamate slightly proximal about 0.5 cm to the superficial palmar arch. The nerve became quite hyperemic. The motor takeoff branch was identified but not explored. The floor of the carpal canal had no masses. The wound was then irrigated and closed with horizontal 3-0 nylon mattress sutures. Appropriate dressing applied and the patient transferred to holding area in satisfactory condition having tolerated the procedure well. Estimated blood loss was trace. Crystalloid 300 mL. No DVT prophylaxis. I attest to the content of the Intraoperative Record and any orders documented therein. Any exception s are noted below.
--- NOTE | 2017-05-17 08:37 | Anesthesia Progress Nt - [facility] ---
Anesthesia Post Op Note Date & Time May 17, 2017 at 08:37 Vital Signs Pain Intensity: 0 Vital Signs Past 12 Hours Date Time Temp Pulse Resp B/P (MAP) Pulse Ox O2 Delivery O2 Flow Rate FiO2 05/17/17 08:11 36.4 73 20 150/79 (102) 97 Room Air 05/17/17 07:34 36.2 84 16 146/85 (105) 95 Room Air Notes Mental Status: alert / awake / arousable, participated in evaluation Pt Amnestic to Procedure: Yes Nausea / Vomiting: adequately controlled Pain: adequately controlled Airway Patency, RR, SpO2: stable & adequate BP & HR: stable & adequate Hydration State: stable & adequate Anesthetic Complications: no major complications apparent
== END | disposition home or self-care (01) ==
LOC: X.SURG 06:14
PROVIDERS: ATTEND Physical Medicine & Rehabilitation Sports Medicine
DX: G56.01 Carpal tunnel syndrome, right upper limb (principal); M19.90 Unspecified osteoarthritis, unspecified site; E66.9 Obesity, unspecified; Z68.35 Body mass index [BMI] 35.0-35.9, adult; Z96.642 Presence of left artificial hip joint; Z96.651 Presence of right artificial knee joint; Z79.82 Long term (current) use of aspirin; Z82.49 Family history of ischemic heart disease and other diseases of the circulatory system; Z80.1 Family history of malignant neoplasm of trachea, bronchus and lung; Z82.3 Family history of stroke